=== PATIENT | female | born 1980 | race African-American/Black ===

== ENCOUNTER 2024-08-10 12:16 | Emergency (ER) | payer OTHER ==
[~2024-08-10] VITALS: Ht 167.6 cm; Wt 110.0 kg
[~2024-08-10 12:16] MED LIST: LANTUSUD SUBCUT
[2024-08-10 12:18] VITALS: O2SAT 99
[2024-08-10] MEDS: ONDANSETRON HCL 4MG/2ML INJ IV ONE (12:30)
[2024-08-10] MEDS: FAMOTIDINE 20MG/2ML VIAL IV ONE (12:30)
[2024-08-10] MEDS: SODIUM CHLORIDE 0.9% 1,000 ML IV ONE (12:30)
[2024-08-10 13:00] VITALS: BP 113/56; PULSE 79; RESP 10; TEMP 36.4; O2SAT 98
[2024-08-10 13:58] LABS: BASOPHILS % 1.1 % (0.0-2.0); EOSINOPHILS % 1.1 % (0.0-5.0); HEMATOCRIT. 34.2 % (36.0-48.0); HEMOGLOBIN. 11.2 g/dL (12.0-16.0); LYMPHOCYTES % 16.7 % (20.0-50.0); MEAN CORPUSCULAR HEMOGLOBIN 30.2 pg (28.0-32.0); MEAN CORPUSCULAR HGB CONC 32.9 g/dL (31.0-37.0); MEAN CORPUSCULAR VOLUME 91.7 fL (81.0-99.0); MEAN PLATELET VOLUME 8.5 fl (7.4-10.4); MONOCYTES % 7.6 % (2.0-8.0); NEUTROPHILS % 73.5 % (40.0-76.0); PLATELET 429 x1000/uL (130-400); RED BLOOD CELL COUNT 3.73 mill/uL (4.2-5.4); RED CELL DISTRIBUTION WIDTH 15.9 % (11.6-14.6); WHITE BLOOD COUNT 7.8 x1000/uL (4.5-11.0)
[2024-08-10 14:05] LABS: CHLORIDE 103 mEq/L (98-107); SODIUM 139 mEq/L (136-145)
[2024-08-10 14:06] LABS: CALCIUM 8.9 mg/dL (8.7-10.4); CARBON DIOXIDE 28 mEq/L (21-32)
[2024-08-10 14:11] LABS: CREATININE 0.7 mg/dL (0.6-1.0); GLUCOSE 107 mg/dL (70-105); UREA NITROGEN BLOOD 8 mg/dL (9-23)
[2024-08-10 14:13] LABS: ALANINE AMINOTRANSFERASE 57 IU/L (10-49); ALBUMIN 3.5 g/dL (3.2-4.8); ASPARTATE AMINOTRANSFERASE 72 IU/L (<34); BILIRUBIN DIRECT 0.1 mg/dL (<=3.0); BILIRUBIN TOTAL 0.3 mg/dL (0.1-1.0); PROTEIN TOTAL 7.5 g/dL (6.0-8.3)
[2024-08-10 14:15] LABS: ETHANOL BLOOD < 10 mg/dL (<10)
[2024-08-10 14:16] LABS: HCG SCREEN NEGATIVE
== END 2024-08-10 15:37 | disposition left against medical advice (07) ==
LOC: ER 12:38 → EDBEDREQ 14:07 → EDBEDREQTM 14:07 → ER 15:37
DX: K62.5 Hemorrhage of anus and rectum (principal); I95.9 Hypotension, unspecified; F12.90 Cannabis use, unspecified, uncomplicated; E11.9 Type 2 diabetes mellitus without complications; I10 Essential (primary) hypertension; J44.9 Chronic obstructive pulmonary disease, unspecified; Z79.899 Other long term (current) drug therapy
CPT/HCPCS: 80076; 80048; 80320; 82270; 84703; 83605; 83690; 85025; 36415; 96361; 96374; 96375; 99284; J3490; J2405; J7030; G0480

== ENCOUNTER 2025-04-13 15:01 | Emergency (ER) | payer OTHER ==
[~2025-04-13] VITALS: Ht 162.6 cm; Wt 110.0 kg
[2025-04-13 15:02] VITALS: O2SAT 100
[2025-04-13] MEDS ORDERED: METHYLPREDNISOLONE 40MG/ML INJ IV ONE (15:30)
[2025-04-13 15:37] VITALS: RESP 28
[2025-04-13] MEDS: ALBUTEROL (0.5%) 2.5MG/0.5ML NEB HHN ONE (15:37)
[2025-04-13] MEDS: METHYLPREDNISOLONE SOD SUCC 40MG/ML (ACT-O-VIAL) IV SCH (15:44)
[2025-04-13 16:02] LABS: CREATININE 0.7 mg/dL (0.6-1.0); UREA NITROGEN BLOOD 7 mg/dL (9-23)
[2025-04-13 16:03] LABS: PROTEIN TOTAL 7.2 g/dL (6.0-8.3); TROPONIN I HIGH SENSITIVITY < 4 ng/L (3.0-34)
[2025-04-13 16:04] LABS: ASPARTATE AMINOTRANSFERASE 33 IU/L (<34); BILIRUBIN TOTAL 0.3 mg/dL (0.1-1.0)
[2025-04-13] MEDS ORDERED: BUDE6HFA INH (17:01)
[2025-04-13 17:03] LABS: BASOPHILS % 0.6 % (0.0-2.0); EOSINOPHILS % 1.1 % (0.0-5.0); HEMATOCRIT. 38.8 % (36.0-48.0); HEMOGLOBIN. 12.7 g/dL (12.0-16.0); LYMPHOCYTES % 31.0 % (20.0-50.0); MEAN PLATELET VOLUME 8.8 fl (7.4-10.4); MONOCYTES % 6.3 % (2.0-8.0); NEUTROPHILS % 61.0 % (40.0-76.0); PLATELET 295 x1000/uL (130-400); RED BLOOD CELL COUNT 4.30 mill/uL (4.2-5.4); RED CELL DISTRIBUTION WIDTH 14.5 % (11.6-14.6)
[2025-04-13 17:14] VITALS: BP 130/70; PULSE 99; RESP 16; TEMP 36.9; O2SAT 100
== END 2025-04-13 17:15 | disposition home or self-care (01) ==
LOC: ER 15:01
DX: J44.1 Chronic obstructive pulmonary disease with (acute) exacerbation (principal); E11.9 Type 2 diabetes mellitus without complications; I10 Essential (primary) hypertension; F17.200 Nicotine dependence, unspecified, uncomplicated; Z79.899 Other long term (current) drug therapy; Z98.890 Other specified postprocedural states; Z79.51 Long term (current) use of inhaled steroids
CPT/HCPCS: 80053; 83735; 85025; 85379; 84484; 36415; 94640; 94660; 93005; 99284; J2919; Z7610 ×4; 94070